=== PATIENT | female | born 1990 | race Hispanic/Latino ===

== ENCOUNTER 2017-11-29 22:33 | Emergency (ER) | payer MEDICAID ==
[~2017-11-29] VITALS: Ht 170.2 cm; Wt 124.7 kg
--- OUTSIDE RECORDS SUMMARY | 2017-11-29 22:36 | XMS REPORT | Summary of Care ---
Author Author LIZ Bains, IMAN Organization Unknown Address Unknown Phone Unavailable Care Team Providers Care Die Mechanic Name Role Phone IMAN HILL M.D. Unavailable Unavailable Unavailable Unavailable Functional Status Name Dates Details Functional status health issues are not documented Status: Name Dates Details Cognitive status health issues are not documented Status: Problems Name Dates Details Encounter for supervision of other normal in third trimester (V22.1, Z34.83) Status: Active Small for gestational age, less than 500 grams (764.01, P05.11) Status: Active follow-up (V24.2, Z39.2) Status: Active 6 weeks follow-up (V24.2, Z39.2) Status: Active General counselling and advice on contraception (V25.09, Z30.09) Status: Active Monilial intertrigo (112.3, B37.2) Status: Active Encounter for IUD insertion (V25.11, Z30.430) Status: Active Medications Name Dates Details Select-OB+DHA 29-1 & 250 MG Oral * Start : 22-Feb-2017 Active RaNITidine HCl - 150 MG Oral Capsule * Refills: 0 * Start : 22-Feb-2017 Active Diclegis 10-10 MG Oral Tablet Delayed Release Take 2 tabs QHS if still nauseated take 1 tab before breakfast and 2 tabs QHS, if still nauseated take 1 tab po before lunch. * Quantity: 100 Refills: 0 LIZ M.D., IMAN * Start : 23-Feb-2017 Active RaNITidine HCl - 150 MG Oral Tablet TAKE 1 TABLET TWICE DAILY. * Quantity: 60 Refills: 3 LIZ M.D., IMAN * Start : 19-Apr-2017 Active Diclegis 10-10 MG Oral Tablet Delayed Release 2 PO in the PM and 1 PO in the afternoon * Quantity: 100 Refills: 0 LIZ M.D., IMAN * Start : 19-Apr-2017 Active Clotrimazole 1 % External Cream APPLY SPARINGLY TO AFFECTED AREA(S) TWICE DAILY * Quantity: 1 Refills: 3 IMAN HILL M.D. * Start : 15-Nov-2017 Active 30 GM Tube Allergies and Adverse Reactions Name Dates Details No Known Allergies (Allergy) Status: Active Past Medical History Name Dates Details History of Encounter for supervision of normal first in second trimester (V22.0, Z34.02) Status: Resolved History of Encounter for supervision of normal in first trimester ( V22.1, Z34.91) Status: Resolved History of Encounter for supervision of other normal in second trimester (V22.1, Z34.82) Status: Resolved History of GERD without esophagitis (530.81, K21.9) Status: Resolved History of HRP (high risk ), second trimester (V23.9, O09.92) Status: Resolved History of HRP (high risk ), third trimester (V23.9, O09.93) Status: Resolved History of Low-lying placenta (641.10, O44.40) Status: Resolved History of Nausea and vomiting in (643.90, O21.9) Status: Resolved History of Oligohydramnios, second trimester, not applicable or unspecified fetus (658.03, O41.02X0) Status: Resolved History of Poor growth affecting management of mother, second trimester, not applicable or unspecified fetus (656.53, O36.5920) Status: Resolved History of Screening for STDs (sexually transmitted diseases) (V74.5, Z11.3) Status: Resolved Procedures Procedure Dates Details Procedures not documented Immunization Name Dates Details Tdap (Adacel) Lot #: [id number] on: 19-Aug-2017 Fluzone Quadrivalent 0.5 ML Intramuscular Suspension Lot #: [id number] on: 19-Aug-2017 Family History Name Dates Details Family history of essential hypertension (V17.49, Z82.49) Status: Active Social History Name Dates Details - Status: Name Dates Details Never smoker Vital Signs Date Test Result Details [id number] BP Systolic 110 mm[Hg] Status: BP Diastolic 71 mm[Hg] Status: Height 67 in Status: Weight 279 lb Status: Body Mass Index Calculated 43.7 kg/m2 Status: Body Surface Area Calculated 2.33 m2 Status: Temperature 98 f Status: Heart Rate 62 /min Status: [id number] BP Systolic 118 mm[Hg] Status: Comments: Location: LUE; Position: Sitting BP Diastolic 79 mm[Hg] Status: Comments: Location: LUE; Position: Sitting Height 67 in Status: Weight 282 lb Status: Body Mass Index Calculated 44.17 kg/m2 Status: Body Surface Area Calculated 2.34 m2 Status: Temperature 98.2 f Status: Comments: Method: Oral Heart Rate 76 /min Status: Results Date Description Value Details [id number] [O] Urine Test (in office) Test, Urine Negative (Normal) Plan of Care Name Dates Details Planned Observations Planned Goals not documented Planned Encounters Appointment; IMAN HILL M.D. On: 03-Jan-2018 14:00 Interventions Provided Instructions* Patient Specific Education Given; Done: 22 Nov 2017 Instructions Name Dates Details Instructions not documented Encounters Appointment; IMAN HILL M.D. Encounter Diagnosis: Problem not documented On: 22-Feb-2017 14:30 Appointment; IMAN HILL M.D. Encounter Diagnosis: Problem not documented On: 22-Mar-2017 15:00 Appointment; IMAN HILL M.D. Encounter Diagnosis: Problem not documented On: 19-Apr-2017 15:00 Appointment; IMAN HILL M.D. Encounter Diagnosis: Problem not documented On: 24-May-2017 15:30 Appointment; [facility] [facility], ROOM2 Encounter Diagnosis: Problem not documented On: 31-May-2017 14:30 Appointment; IMAN HILL M.D. Encounter Diagnosis: Problem not documented On: 06-Jun-2017 13:15 Appointment; [facility], ROOM1 Encounter Diagnosis: Problem not documented On: 29-Jun-2017 10:30 Appointment; IMAN HILL M.D. Encounter Diagnosis: Problem not documented On: 30-Jun-2017 13:00 Appointment; [facility] [facility], ROOM2 Encounter Diagnosis: Problem not documented On: 26-Jul-2017 13:45 Appointment; IMAN HILL M.D. Encounter Diagnosis: Problem not documented On: 26-Jul-2017 14:30 Appointment; IMAN HILL M.D. Encounter Diagnosis: Problem not documented On: 19-Aug-2017 9:15 Appointment; [facility], ROOM2 Encounter Diagnosis: Problem not documented On: 25-Aug-2017 13:00 Appointment; IMAN HILL M.D. Encounter Diagnosis: Problem not documented On: 25-Aug-2017 14:15 Appointment; IMAN HILL M.D. Encounter Diagnosis: Problem not documented On: 01-Sep-2017 11:30 Appointment; IMAN HILL M.D. Encounter Diagnosis: Problem not documented On: 09-Sep-2017 8:15 Appointment; IMAN HILL M.D. Encounter Diagnosis: Problem not documented On: 23-Sep-2017 9:15 Appointment; IMAN HILL M.D. Encounter Diagnosis: Problem not documented On: 15-Nov-2017 15:30 Appointment; IMAN HILL M.D. Encounter Diagnosis: Problem not documented On: 22-Nov-2017 14:45
[2017-11-29] MEDS ORDERED: BELLADONNA ALK/PHENOBARBITAL 5 ML UDC PO STA (23:05)
[2017-11-29] MEDS ORDERED: LIDOCAINE VISC 2% SOLN 15 ML UDC PO ONE (23:15)
[2017-11-29] MEDS ORDERED: MAGNESIUM/ALUMINUM/SIMETHICONE 30 ML UDC PO ONE (23:15)
[2017-11-30 00:01] VITALS: BP 120/71
== END 2017-11-29 23:39 | disposition home or self-care (01) ==
LOC: FSED 22:33
DX: R10.13 Epigastric pain (principal); K29.00 Acute gastritis without bleeding
CPT/HCPCS: 85025